=== PATIENT | female | born 1980 | race African-American/Black ===

== ENCOUNTER 2017-03-26 13:11 | Emergency (ER) | payer MEDICAID ==
[~2017-03-26] VITALS: Ht 165.1 cm; Wt 81.0 kg
[2017-03-26] MEDS ORDERED: HYDROCODONE/ACETAMINOPHEN 5/325MG TABLET PO PRN (20:45)
[2017-03-26] MEDS ORDERED: IBUPROFEN 800MG TABLET PO ONE (20:45)
[2017-03-26 23:10] VITALS: BP 134/88
== END 2017-03-26 23:14 | disposition home or self-care (01) ==
LOC: ER 14:24
DX: S22.32XA Fracture of one rib, left side, initial encounter for closed fracture (principal); Z98.890 Other specified postprocedural states; W18.2XXA Fall in (into) shower or empty bathtub, initial encounter; Y93.89 Activity, other specified; Y92.012 Bathroom of single-family (private) house as the place of occurrence of the external cause
CPT/HCPCS: 71010; 81025; 99283